=== PATIENT | male | born 1995 | race Caucasian/White ===

== ENCOUNTER 2021-06-11 17:10 | Emergency (ER) | payer SELFPAY ==
[~2021-06-11] VITALS: Ht 182.9 cm; Wt 97.0 kg
[2021-06-11] MEDS ORDERED: LORAZEPAM 2MG/ML CPJ IV ONE (17:30)
[2021-06-11] MEDS ORDERED: SODIUM CHLORIDE 0.9% 1,000 ML IV ONE (17:30)
[2021-06-11 18:53] LABS: CHLORIDE 103 mEq/L (98-107)
[2021-06-11 19:50] LABS: BASOPHILS % 0.2 % (0.0-2.0); EOSINOPHILS % 0.2 % (0.0-5.0); HEMATOCRIT. 42.2 % (42.0-52.0); HEMOGLOBIN. 14.8 g/dL (14.0-18.0); LYMPHOCYTES % 7.2 % (20.0-50.0); MEAN CORPUSCULAR HEMOGLOBIN 30.7 pg (28.0-32.0); MEAN CORPUSCULAR VOLUME 87.9 fL (80.0-94.0); MEAN PLATELET VOLUME 9.1 fl (7.4-10.4); MONOCYTES % 6.9 % (2.0-8.0); NEUTROPHILS % 85.5 % (40.0-76.0); PLATELET 145 x1000/uL (130-400); RED CELL DISTRIBUTION WIDTH 12.3 % (11.6-14.6)
[2021-06-11] MEDS ORDERED: KETOROLAC 15MG/ML VIAL IM ONE (20:45)
[2021-06-11] MEDS ORDERED: POTASSIUM CHLORIDE 20MEQ TABLET SR PO NR (20:45)
[2021-06-11 22:15] VITALS: BP 124/68
== END 2021-06-11 22:19 | disposition home or self-care (01) ==
LOC: ER 17:10
DX: R00.2 Palpitations (principal); Z88.0 Allergy status to penicillin
CPT/HCPCS: 36415; 71045; 80048; 84484; 85025; 93005; 96361; 96372; 96374; 99285; J1885; J2060; J7030